=== PATIENT | female | born 1975 | race Caucasian/White ===

== ENCOUNTER 2022-05-23 00:39 | Day surgery (SDC) | payer OTHER, SELFPAY ==
[2022-05-05 13:09] VITALS: BMI 20.9
--- NOTE | 2022-05-22 15:44 | WPDANESEPPF ---
Anes - Initial Pre Proc Eval Procedure: Operation Date: 05/23/22 07:30 Proposed Procedures p Screening Colonoscopy - Kali Gonzalez MD Date/Time: 05/22/22 15:44 Surgeon: Kali Gonzalez MD Pre Op Diagnosis: neoplasm screening Patient Data Age: 47 Gender: F Height: 1.7 m Weight: 60.5 kg Allergies Allergy/AdvReac Type Severity Reaction Status Date / Time No Known Allergies Allergy Verified 05/23/22 06:21 Home Medications Medication Instructions Recorded Confirmed Type cholecalciferol (vitamin D3) 50 2,000 unit PO DAILY 04/14/19 05/09/22 History mcg (2,000 unit) tablet multivitamin (Daily Multi-Vitamin 1 tablet PO DAILY 04/14/19 05/09/22 History tablet) soy isoflavone-black cohosh 1 cap PO DAILY 05/05/22 05/09/22 History root-magnolia bark 155 mg capsule (Estroven) Patient hx anesthesia problems: none Family hx anesthesia problems: none Results Review: All pre-operative results and documents have been reviewed as part of the pre-operative evaluation. [facility] Past Medical History Medical History Abnormal mammogram of left breast Anterior chest wall pain Breast pain Encounter for well woman exam Pain in female pelvis Screening mammogram, encounter for Vaginal delivery Vaginal lesion Family History Family History Grandparent Diabetes mellitus, Onset Age: 51 Father Hypertension Family history of elevated blood lipids Grandparent Carcinoma of colon Social History Social History Smoking status: Never smoker Second hand tobacco smoke exposure: No Alcohol intake: current Drinks per week: 1 Substance use: never Substance use type: does not use Lack of Transportation: No Lack of Food: Never True Current Housing: I Have Housing Concerned About Future Housing: No Difficulty Paying Gas/Electric Bills: No Difficulty Paying for Meds: No Currently Unemployed: No Education: Bachelor's Degree Difficulty w/ Childcare or Family Care: No Living arrangements: with family Occupation/Education: occupation Gender identity (if verbalized by the patient): Female Sexual Orientation (if Verbalized by the Patient): Straight or Heterosexual Spiritual care concerns: No Anes - Eval Final PreProcedure Day of Procedure 05/22/22 15:44 Patient weight: normal Heart: regular rate and rhythm Lungs: clear to auscultation and normal air movement Airway: Mallampati scale class II Neurological: alert and oriented Last oral intake: >/= 8 hours ASA classification: I Emergent: no Anesthetic plan: proceed Anesthesia type and monitoring: general GIVS and standard monitoring Results Review: All pre-operative results and documents have been reviewed as part of the pre-operative evaluation. Informed Consent: The patient's anesthetic plan and its attendant risks and benefits were discussed with the patient/family/POA. Questions were solicited and answers provided to the satisfaction of the patient/family/POA.
[2022-05-23 06:22] VITALS: BP 94/79; PULSE 73; RESP 18; TEMP 36.3; O2SAT 100
[2022-05-23] MEDS: LACTATED RINGERS 1,000 ML 150 ML IV CONT (06:34)
--- NOTE | 2022-05-23 07:30 | PM.HPGS ---
History of Present Illness History of Present Illness Consent: Risks, benefits, and alternatives have been discussed and questions answered. Patient agrees to proceed with procedure. Chief complaint: neoplasm screening Narrative: Alannah Forman is a 47 year old female here for first screening colonoscopy Review of Systems Constitutional: Constitutional: Denies headache(s) and Denies weakness Eyes: Eyes: Denies blurry vision ENT: Reports Normal hearing present, Denies headache(s) and Denies neck pain Cardiovascular: Cardiovascular: Denies chest pain and Denies dyspnea Respiratory: Respiratory: Denies dyspnea Gastrointestinal: Gastrointestinal: Reports no additional gastrointestinal complaints Genitourinary: Genitourinary: Denies dysuria Musculoskeletal: Musculoskeletal: Denies neck pain Integumentary/Breasts: Skin/Breast: Denies dry skin Neurologic: Reports Normal hearing present, Denies headache(s) and Denies weakness Psychiatric: Psychiatric: Denies anxiety Endocrine: Endocrine: Denies change in body appearance Hematologic/Lymphatic: Hematologic/Lymphatic: Denies easy bleeding Allergic/Immunologic: Allergic/Immunologic: Denies urticaria PMFSH Past Medical History Medical History (Updated 05/23/22 @ 07:30 by Kali Gonzalez MD) Abnormal mammogram of left breast Anterior chest wall pain Breast pain Colon cancer screening Encounter for well woman exam Pain in female pelvis Screening mammogram, encounter for Vaginal delivery Vaginal lesion Family History Family History Grandparent Diabetes mellitus, Onset Age: 51 Father Hypertension Family history of elevated blood lipids Grandparent Carcinoma of colon Social History Social History Smoking status: Never smoker Second hand tobacco smoke exposure: No Alcohol intake: current Drinks per week: 1 Substance use: never Substance use type: does not use Lack of Transportation: No Lack of Food: Never True Current Housing: I Have Housing Concerned About Future Housing: No Difficulty Paying Gas/Electric Bills: No Difficulty Paying for Meds: No Currently Unemployed: No Education: Bachelor's Degree Difficulty w/ Childcare or Family Care: No Living arrangements: with family Occupation/Education: occupation Gender identity (if verbalized by the patient): Female Sexual Orientation (if Verbalized by the Patient): Straight or Heterosexual Spiritual care concerns: No Meds Home Medications and Allergies Home Medications Medication Instructions Recorded Confirmed Type cholecalciferol (vitamin D3) 50 2,000 unit PO DAILY 04/14/19 05/09/22 History mcg (2,000 unit) tablet multivitamin (Daily Multi-Vitamin 1 tablet PO DAILY 04/14/19 05/09/22 History tablet) soy isoflavone-black cohosh 1 cap PO DAILY 05/05/22 05/09/22 History root-magnolia bark 155 mg capsule (Estroven) Allergies Allergy/AdvReac Type Severity Reaction Status Date / Time No Known Allergies Allergy Verified 05/23/22 06:21 Vital Signs Vital Signs - 24 hr 05/23/22 06:22 Temperature 97.3 F L Pulse Rate 73 Respiratory Rate 18 Blood Pressure 94/79 L Pulse Oximetry 100 Oxygen Delivery Room Air Exam Const: General: comfortable and no acute distress HENMT: Face/Nose/Sinus: Normal nares present Eyes: General: appearance normal, both eyes and all related structures Neck: Neck: no JVD Resp: Auscultation: clear to auscultation bilaterally Cardio: Rate: regular rate Rhythm: regular rhythm GI: Inspection: non-distended GI Palp: Yes Soft to palpation Skin: General skin exam: normal color Neuro: General: gait normal Speech: normal speech Extrem: General: normal to inspection Psych: Mental Status: mental status grossly normal Assessment and Plan Assessment and plan
[2022-05-23 07:52] VITALS: BP 85/47; PULSE 75; RESP 18; O2SAT 99
[2022-05-23 08:02] VITALS: BP 93/51; PULSE 68; RESP 19; O2SAT 100
[2022-05-23 08:12] VITALS: BP 96/62; PULSE 73; RESP 15; O2SAT 100
== END 2022-05-23 08:15 | disposition home or self-care (01) ==
PROVIDERS: PCP Physician Assistant Medical; Visit Provider Internal Medicine Gastroenterology
PROC: 0DJD8ZZ Inspection of Lower Intestinal Tract, Via Natural or Artificial Opening Endoscopic (ICD-10-PCS; CPT 45378; principal; 2022-05-23 07:30)
DX: Z12.11 Encounter for screening for malignant neoplasm of colon (principal); D12.0 Benign neoplasm of cecum; D12.2 Benign neoplasm of ascending colon; K64.8 Other hemorrhoids
CPT/HCPCS: 45385; 88305; J2704; J7120